=== PATIENT | male | born 1995 | race Two or more races ===

== ENCOUNTER 2016-09-25 19:18 | Emergency (ER) | payer SELFPAY ==
[~2016-09-25] VITALS: Ht 165.1 cm; Wt 93.0 kg
[2016-09-25 19:26] VITALS: BP 107/86
== END 2016-09-25 21:11 | disposition left against medical advice (07) ==
LOC: ER 19:18
DX: R10.9 Unspecified abdominal pain (principal); Z53.21 Procedure and treatment not carried out due to patient leaving prior to being seen by health care provider